=== PATIENT | male | born 1990 | race African-American/Black ===

== ENCOUNTER 2020-04-07 15:54 | Emergency (ER) | payer MEDICAID, OTHER ==
[~2020-04-07] VITALS: Ht 185.4 cm; Wt 67.6 kg
--- NOTE | 2020-04-07 16:07 | NUR ---
ED Nurse Note: Pt walked in from home c/o right sided and mid abd pain x 3 days. Pt reports he had the same pain about 3 weeks ago, but the pain subsided. Denies n/v/d. Respirations even and unlabored on room air. Vitals stable as documented.
[2020-04-07 16:08] VITALS: BP 134/88
--- NOTE | 2020-04-07 16:21 | NUR ---
HAND-OFF: Report given to LENNY Salcido. Pt in stable condition; plan of care endorsed.
--- NOTE | 2020-04-07 16:27 | NUR ---
ED Nurse Note: Dr. Crawley at bedside.
--- NOTE | 2020-04-07 16:50 | NUR ---
ED Nurse Note: 20 g IV started in right AC, blood collected and sent to lab.
[2020-04-07 17:15] LABS: BASOPHILS % (AUTO) 1.3 % (0.0-2.0); EOSINOPHILS % (AUTO) 2.6 % (0.0-3.0); HEMATOCRIT 49.7 % (42.0-52.0); HEMOGLOBIN 15.9 G/DL (14.2-18.0); LYMPHOCYTES % (AUTO) 23.8 % (20.0-45.0); MEAN CORPUSCULAR VOLUME 85 FL (80-99); MONOCYTES % (AUTO) 10.4 % (1.0-10.0); NEUTROPHILS % (AUTO) 61.9 % (45.0-75.0); PLATELET COUNT 226 K/UL (150-450); RED BLOOD COUNT 5.85 M/UL (4.70-6.10); RED CELL DISTRIBUTION WIDTH 12.2 % (11.6-14.8)
[2020-04-07 17:21] LABS: ANION GAP 8 mmol/L (5-15); BLOOD UREA NITROGEN 8 mg/dL (7-18); CALCIUM 8.9 MG/DL (8.5-10.1); CARBON DIOXIDE 31 MMOL/L (21-32); CHLORIDE 103 MMOL/L (98-107); CREATININE 1.1 MG/DL (0.55-1.30); POTASSIUM 3.8 MMOL/L (3.5-5.1); SODIUM 142 MMOL/L (136-145)
[2020-04-07 17:23] LABS: APPEARANCE,URINE CLEAR; BILIRUBIN, URINE NEGATIVE (NEGATIVE); COLOR,URINE YELLOW; GLUCOSE, URINE (UA) NEGATIVE (NEGATIVE); KETONES,URINE 1+ (NEGATIVE); LEUKOCYTE ESTERASE ,URINE NEGATIVE (NEGATIVE); NITRITE,URINE NEGATIVE (NEGATIVE); PH,URINE 6 (4.5-8.0); PROTEIN,URINE NEGATIVE (NEGATIVE); UROBILINOGEN,URINE NORMAL MG/DL (0.0-1.0)
[2020-04-07 17:25] LABS: ALANINE AMINOTRANSFERASE 13 U/L (12-78); ALBUMIN 4.6 G/DL (3.4-5.0); ALBUMIN/GLOBULIN RATIO 1.2 (1.0-2.7); ALKALINE PHOSPHATASE 57 U/L (46-116); ASPARTATE AMINO TRANSFERASE 11 U/L (15-37); BILIRUBIN,TOTAL 0.4 MG/DL (0.2-1.0)
--- NOTE | 2020-04-07 17:43 | NUR ---
ED Nurse Note: Dr. Crawley at bedside.
[2020-04-07] MEDS ORDERED: Omnipaque-300 100ml vial INJ PRN (18:00)
[2020-04-07 18:05] VITALS: BP 131/81
--- NOTE | 2020-04-07 18:51 | Emergency Room Report ---
History of Present Illness General Chief Complaint: Abdominal Pain Source: Patient Present Illness HPI 29-year-old male presents for abdominal pain. Notes pain to the right side of abdomen dull, 6 out of 10, nonradiating. States he is had the pain on and off now for 3 weeks. Denies fevers or chills peer denies nausea or vomiting. Denies chest pain. No other aggravating relieving factors. Denies any other associated symptoms Allergies: Coded Allergies: No Known Allergies (Unverified , 04/07/20) COVID-19 Screening Contact w/high risk pt: No Experienced COVID-19 symptoms?: No COVID-19 Testing performed ATTENDANT LODGING FACILITIES: No Patient History Past Medical History: asthma Past Surgical History: none Pertinent Family History: none Social History: Denies: smoking, alcohol use, drug use Immunizations: UTD Reviewed Nursing Documentation: PMH: Agreed; PSxH: Agreed Nursing Documentation-PMH Past Medical History: No History, Except For Hx Asthma: Yes Review of Systems All Other Systems: negative except mentioned in HPI Physical Exam Vital Signs Date Time Temp Pulse Resp B/P (MAP) Pulse Ox O2 Delivery O2 Flow Rate FiO2 04/07/20 15:57 98.2 100 17 130/91 (104) 94 Room Air Sp02 EP Interpretation: reviewed, normal General Appearance: no apparent distress, alert, GCS 15, non-toxic Head: normocephalic, atraumatic Eyes: bilateral eye normal inspection, bilateral eye PERRL ENT: hearing grossly normal, normal pharynx, no angioedema, normal voice Neck: full range of motion, supple/symm/no masses Respiratory: chest non-tender, lungs clear, normal breath sounds, speaking full sentences Cardiovascular #1: regular rate, rhythm, no edema Cardiovascular #2: 2+ carotid (R), 2+ carotid (L), 2+ radial (R), 2+ radial (L) , 2+ dorsalis pedis (R), 2+ dorsalis pedis (L) Gastrointestinal: normal bowel sounds, soft, non-distended, no guarding, no rebound, tenderness - RLQ Rectal: deferred Genitourinary: normal inspection, no CVA tenderness Musculoskeletal: back normal, normal range of motion, gait/station normal, non- tender Neurologic: alert, motor strength/tone normal, oriented x3, sensory intact, responsive, speech normal Psychiatric: judgement/insight normal, memory normal, mood/affect normal, no suicidal/homicidal ideation Reflexes: 3+ bicep (R), 3+ bicep (L), 3+ tricep (R), 3+ tricep (L), 3+ knee (R) , 3+ knee (L) Skin: no rash Lymphatic: no adenopathy Medical Decision Making Diagnostic Impression: Primary Impression: Constipation Qualified Codes: K59.00 - Constipation, unspecified ER Course Hospital Course 29-year-old M presents to ED with abdominal pain Differential diagnosis includes-appendicitis, cholecystitis, small bowel obstruction, gastritis, Clinical course Patient placed on stretcher. After initial history and physical I ordered labs , IV fluids, CT Labs - no leukocytosis, electrolytes ok, LFTs normal, UA unremarkable CT - copious stool noted I discussed findings with patient. Will discharge home with stool softeners. Safe for discharge close outpatient follow-up. Does not have a PMD. I will provide referrals I feel this is a highly complex case requiring extensive working including EKG/ Rhythm strip, Xray/CT/US, Blood/urine lab work, repeat exams while in ED, and administration of strong opiates/narcotics for pain control, admission to hospital or close patient follow up. Diagnosis - constipation Stable and discharged to home with Rx Mag citrate, Colace. instructed on high- fiber diet. Followup with PMD. Return to ED if symptoms recur or worsen Labs Test 04/07/20 16:45 04/07/20 17:05 White Blood Count 8.0 K/UL (4.8-10.8) Red Blood Count 5.85 M/UL (4.70-6.10) Hemoglobin 15.9 G/DL (14.2-18.0) Hematocrit 49.7 % (42.0-52.0) Mean Corpuscular Volume 85 FL (80-99) Mean Corpuscular Hemoglobin 27.2 PG (27.0-31.0) Mean Corpuscular Hemoglobin Concent 32.0 G/DL (32.0-36.0) Red Cell Distribution Width 12.2 % (11.6-14.8) Platelet Count 226 K/UL (150-450) Mean Platelet Volume 7.6 FL (6.5-10.1) Neutrophils (%) (Auto) 61.9 % (45.0-75.0) Lymphocytes (%) (Auto) 23.8 % (20.0-45.0) Monocytes (%) (Auto) 10.4 % (1.0-10.0) Eosinophils (%) (Auto) 2.6 % (0.0-3.0) Basophils (%) (Auto) 1.3 % (0.0-2.0) Sodium Level 142 MMOL/L (136-145) Potassium Level 3.8 MMOL/L (3.5-5.1) Chloride Level 103 MMOL/L (98-107) Carbon Dioxide Level 31 MMOL/L (21-32) Anion Gap 8 mmol/L (5-15) Blood Urea Nitrogen 8 mg/dL (7-18) Creatinine 1.1 MG/DL (0.55-1.30) Estimat Glomerular Filtration Rate > 60 mL/min (>60) Glucose Level 89 MG/DL (74-106) Calcium Level 8.9 MG/DL (8.5-10.1) Total Bilirubin 0.4 MG/DL (0.2-1.0) Aspartate Amino Transf (AST/SGOT) 11 U/L (15-37) Alanine Aminotransferase (ALT/SGPT) 13 U/L (12-78) Alkaline Phosphatase 57 U/L (46-116) Total Protein 8.3 G/DL (6.4-8.2) Albumin 4.6 G/DL (3.4-5.0) Globulin 3.7 g/dL Albumin/Globulin Ratio 1.2 (1.0-2.7) Lipase 129 U/L (73-393) Urine Color Yellow Urine Appearance Clear Urine pH 6 (4.5-8.0) Urine Specific [place] 1.020 (1.005-1.035) Urine Protein Negative (NEGATIVE) Urine Glucose (UA) Negative (NEGATIVE) Urine Ketones 1+ (NEGATIVE) Urine Blood Negative (NEGATIVE) Urine Nitrite Negative (NEGATIVE) Urine Bilirubin Negative (NEGATIVE) Urine Urobilinogen Normal MG/DL (0.0-1.0) Urine Leukocyte Esterase Negative (NEGATIVE) CT/MRI/US Diagnostic Results CT/MRI/US Diagnostic Results : Imaging Test Ordered: CT A/P Impression Procedure: CT Abdomen Pelvis WO Contrast EXAM: CT Abdomen and Pelvis Without Intravenous Contrast CLINICAL HISTORY: ABD PAIN TECHNIQUE: Axial computed tomography images of the abdomen and pelvis without intravenous contrast. CTDI is 3.60 mGy and DLP is 181.2 mGy-cm. One or more of the following dose reduction techniques were used: automated exposure control, adjustment of the mA and/or kV according to patient size, use of iterative reconstruction technique. COMPARISON: None. FINDINGS: Lung bases: Minimal subsegmental atelectasis at the left lung base. ABDOMEN: Liver: The liver and the spleen are normal in contour. Gallbladder and bile ducts: The gallbladder is in a semi-contracted state. No calcified stones. No ductal dilation. Pancreas: The head, body, tail of the pancreas are unremarkable. No ductal dilation. Spleen: See above. Adrenals: The adrenal glands are unremarkable. 0.5 cm probable left adrenal adenoma. No follow-up is advised. Kidneys and ureters: No renal calculus or hydronephrosis. Stomach and bowel: Presumed ingested material in the stomach. Moderate quantity of stool throughout the colon. No evidence of bowel obstruction. No mucosal thickening. PELVIS: Appendix: The appendix is seen on coronal image 40 and is unremarkable. Bladder: The bladder is under distended. No stones. Reproductive: The prostate gland measures 3.6 x 5.5 cm. ABDOMEN and PELVIS: Intraperitoneal space: Unremarkable. No free air. No significant fluid collection. Bones/joints: Mild osteoarthritic changes about the sacroiliac joints. 0.3 cm bone island left femoral head. Alignment of the thoracolumbar spine is unremarkable. The sacrum and coccyx are unremarkable. No acute fracture. Soft tissues: Evaluation of the soft tissues is limited due to oral and intravenous contrast administration. Ischiorectal fat is clean. Vasculature: Abdominal aorta is normal in caliber. No abdominal aortic aneurysm. Lymph nodes: No retroperitoneal lymphadenopathy. No pelvic or inguinal lymphadenopathy. IMPRESSION: 1. Probable left adrenal adenoma. No further workup is advised. 2. The gallbladder is unremarkable. 3. No renal calculus or hydronephrosis. 4. Moderate quantity of stool throughout the colon. 5. No evidence of bowel obstruction. 6. The appendix is unremarkable. Last Vital Signs Date Time Temp Pulse Resp B/P (MAP) Pulse Ox O2 Delivery O2 Flow Rate FiO2 04/07/20 18:05 98.0 71 18 131/81 98 Room Air Status: improved Disposition: HOME, SELF-CARE Condition: Stable Scripts Magnesium Citrate (CITRATE OF MAGNESIA) 296 Ml Solution 150 ML PO DAILY for 2 Days, #296 ML Prov: Piyush Crawley MD 04/07/20 Docusate Sodium* (COLACE*) 100 Mg Capsule 100 MG ORAL THREE TIMES A DAY, #30 CAP Prov: Piyush Crawley MD 04/07/20 Referrals: ANA GORDILLO,REFERRING (PCP) Piyush Crawley MD Apr 07, 2020 18:51
--- NOTE | 2020-04-07 19:06 | NUR ---
ED Nurse Note: Patient states he would like to do the CT scan without contrast. Dr. Crawley explained the risks and benefits.
--- NOTE | 2020-04-07 19:10 | NUR ---
HAND-OFF: Report given to Iris GALVEZ.
--- NOTE | 2020-04-07 19:26 | NUR ---
ED Nurse Note: Patient went down for CT accompanied by doctor of radiology.
--- NOTE | 2020-04-07 19:37 | NUR ---
ED Nurse Note: Patient returned from CT without incident. Will continue to monitor for Ct report.
--- NOTE | 2020-04-07 20:03 | Diagnostic Imaging Report ---
EXAM: CT Abdomen and Pelvis Without Intravenous Contrast CLINICAL HISTORY: ABD PAIN TECHNIQUE: Axial computed tomography images of the abdomen and pelvis without intravenous contrast. CTDI is 3.60 mGy and DLP is 181.2 mGy-cm. One or more of the following dose reduction techniques were used: automated exposure control, adjustment of the mA and/or kV according to patient size, use of iterative reconstruction technique. COMPARISON: None. FINDINGS: Lung bases: Minimal subsegmental atelectasis at the left lung base. ABDOMEN: Liver: The liver and the spleen are normal in contour. Gallbladder and bile ducts: The gallbladder is in a semi-contracted state. No calcified stones. No ductal dilation. Pancreas: The head, body, tail of the pancreas are unremarkable. No ductal dilation. Spleen: See above. Adrenals: The adrenal glands are unremarkable. 0.5 cm probable left adrenal adenoma. No follow-up is advised. Kidneys and ureters: No renal calculus or hydronephrosis. Stomach and bowel: Presumed ingested material in the stomach. Moderate quantity of stool throughout the colon. No evidence of bowel obstruction. No mucosal thickening. PELVIS: Appendix: The appendix is seen on coronal image 40 and is unremarkable. Bladder: The bladder is under distended. No stones. Reproductive: The prostate gland measures 3.6 x 5.5 cm. ABDOMEN and PELVIS: Intraperitoneal space: Unremarkable. No free air. No significant fluid collection. Bones/joints: Mild osteoarthritic changes about the sacroiliac joints. 0.3 cm bone island left femoral head. Alignment of the thoracolumbar spine is unremarkable. The sacrum and coccyx are unremarkable. No acute fracture. Soft tissues: Evaluation of the soft tissues is limited due to oral and intravenous contrast administration. Ischiorectal fat is clean. Vasculature: Abdominal aorta is normal in caliber. No abdominal aortic aneurysm. Lymph nodes: No retroperitoneal lymphadenopathy. No pelvic or inguinal lymphadenopathy. IMPRESSION: 1. Probable left adrenal adenoma. No further workup is advised. 2. The gallbladder is unremarkable. 3. No renal calculus or hydronephrosis. 4. Moderate quantity of stool throughout the colon. 5. No evidence of bowel obstruction. 6. The appendix is unremarkable.
[2020-04-07] MEDS ORDERED: CITRATE OF MAG296 ML PO (20:21)
[2020-04-07] MEDS ORDERED: COLACE100 MG ORAL (20:21)
[2020-04-07 20:27] VITALS: BP 131/81
--- NOTE | 2020-04-07 20:27 | NUR ---
ED Nurse Note: Demarcusn cleared for discharge by ERMD. IV removed without complication, ID band removed. Patient verbalized understanding of discharge instructions. Patient departed with all belongings to home.
--- NOTE | 2020-04-10 09:50 | Diagnostic Imaging Report ---
Indication: Abdominal pain Technique: Supine view of the abdomen Comparison: none Findings: Unremarkable bowel gas pattern. No masses or unusual calcifications Impression: Negative
== END 2020-04-07 20:28 | disposition home or self-care (01) ==
LOC: EMR 16:28
DX: K59.00 Constipation, unspecified (principal)
CPT/HCPCS: 36415; 74018; 74176; 80053; 81003; 83690; 85025; Z7502; 99284